=== PATIENT | female | born 1945 ===

== ENCOUNTER 2020-09-23 07:32 | Outpatient (CLI) | payer OTHER | END 2020-09-23 07:39 | disposition home or self-care (01) | LOC: SONOGRAMA 07:32 → MAMO-SONO 07:45 | PROVIDERS: ATTEND Internal Medicine Gastroenterology | DX: R10.10 Upper abdominal pain, unspecified (principal) ==

== ENCOUNTER 2021-11-29 07:54 | Outpatient (CLI) | payer OTHER | END 2021-11-29 07:59 | disposition home or self-care (01) | LOC: RX STUDY 07:54 → SONOGRAMA 07:54 → RX STUDY 07:59 | PROVIDERS: ATTEND Internal Medicine Gastroenterology | DX: E78.5 Hyperlipidemia, unspecified (principal); K21.9 Gastro-esophageal reflux disease without esophagitis; R13.14 Dysphagia, pharyngoesophageal phase ==

== ENCOUNTER 2022-02-10 09:57 | Outpatient (CLI) | payer OTHER | END 2022-02-10 10:04 | disposition home or self-care (01) | LOC: TOM 09:57 | PROVIDERS: ATTEND Internal Medicine Gastroenterology | DX: R13.14 Dysphagia, pharyngoesophageal phase (principal); R93.3 Abnormal findings on diagnostic imaging of other parts of digestive tract ==

== ENCOUNTER 2023-03-15 08:53 | Outpatient (CLI) | payer OTHER | END 2023-03-15 09:06 | disposition home or self-care (01) | LOC: RX STUDY 08:53 | PROVIDERS: ATTEND Radiology Diagnostic Radiology | DX: R13.14 Dysphagia, pharyngoesophageal phase (principal) ==